=== PATIENT | female | born 1995 | race American Indian/Alaskan Native ===

== ENCOUNTER 2019-01-12 12:07 | Emergency (ER) | payer SELFPAY ==
[2019-01-12 12:11] VITALS: BP 132/75
== END 2019-01-12 12:30 | disposition left against medical advice (07) ==
LOC: ED 12:07
DX: L02.32 Furuncle of buttock (principal); Z53.21 Procedure and treatment not carried out due to patient leaving prior to being seen by health care provider

== ENCOUNTER 2021-04-24 13:24 | Emergency (ER) | payer OTHER ==
[2021-04-24 16:34] VITALS: BP 130/78
--- NOTE | 2021-04-24 17:03 | Emergency Department Report ---
- General Chief complaint: Skin/Abscess/Foreign Body Stated complaint: BOIL BETWEEN BUTT Time Seen by Provider: 04/24/21 16:55 Source: patient Mode of arrival: Ambulatory Limitations: No Limitations - History of Present Illness Initial comments: Patient is a 26-year-old female presents emergency room with complaints of an abscess to the gluteus region that began a couple days ago. She states that it has been increasing in size and becoming more uncomfortable. She states that she has had this in the past but it has been a while. She denies any drainage, fever, chills, nausea, vomiting, diarrhea. No past medical history. No allergies to medications. - Related Data Previous Rx's Medication Instructions Recorded Last Taken Type Naproxen 375 mg PO BID PRN #14 tablet 04/24/21 Unknown Rx Sulfamethoxazole/Trimethoprim 1 each PO BID 7 Days #14 tablet 04/24/21 Unknown Rx [Bactrim DS TAB] Allergies Allergy/AdvReac Type Severity Reaction Status Date / Time No Known Allergies Allergy Unverified 01/12/19 12:09 Abscess Boil HPI - HPI Chief Complaint: Skin/Abscess/Foreign Body Stated Complaint: BOIL BETWEEN BUTT Time Seen by Provider: 04/24/21 16:55 Home Medications: Previous Rx's Medication Instructions Recorded Last Taken Type Naproxen 375 mg PO BID PRN #14 tablet 04/24/21 Unknown Rx Sulfamethoxazole/Trimethoprim 1 each PO BID 7 Days #14 tablet 04/24/21 Unknown Rx [Bactrim DS TAB] Allergies/Adverse Reactions: Allergies Allergy/AdvReac Type Severity Reaction Status Date / Time No Known Allergies Allergy Unverified 01/12/19 12:09 ED Review of Systems ROS: Stated complaint: BOIL BETWEEN BUTT Other details as noted in HPI Comment: All other systems reviewed and negative ED Past Medical Hx - Past Medical History Previous Medical History?: No - Surgical History Past Surgical History?: No - Social History Smoking Status: Current Every Day Smoker Substance Use Type: None - Medications Home Medications: Home Medications Medication Instructions Recorded Confirmed Last Taken Type Naproxen 375 mg PO BID PRN #14 tablet 04/24/21 Unknown Rx Sulfamethoxazole/Trimethoprim 1 each PO BID 7 Days #14 tablet 04/24/21 Unknown Rx [Bactrim DS TAB] ED Physical Exam - General Limitations: No Limitations General appearance: alert, in no apparent distress - Head Head exam: Present: atraumatic, normocephalic - Eye Eye exam: Present: normal appearance - ENT ENT exam: Present: mucous membranes moist - Respiratory Respiratory exam: Absent: respiratory distress, accessory muscle use - Neurological Exam Neurological exam: Present: alert, oriented X3 - Psychiatric Psychiatric exam: Present: normal affect, normal mood - Skin Skin exam: Present: warm, dry, other (3 cm area of induration to the left lower gluteus region, no perianal involvement, no perineum invovlement, no signficant surrounding cellulitis, no opening or drainage, small area of central fluctuance, chaperoned by MAHI matamoros) ED Course Vital Signs 04/24/21 16:29 Temperature 98 F Pulse Rate 70 Respiratory 16 Rate Blood Pressure 130/78 [Right] O2 Sat by Pulse 100 Oximetry - I & D Left Buttocks Type of Procedure: Simple Site: left gluteus Blade Size: 11 I & D Procedure: betadine prep, sterile drapes applied, sterile dressing applied Progress: Verbal consent obtained by patient Chaperoned by MAHI Matamoros Skin prepped with Betadine, sterile drapes applied, 1.5 cm incision made with 11 blade, small amount of purulent drainage, no significant bleeding, used blunt hemostats and there were no further loculations, irrigated with saline, packed with iodoform gauze, patient tolerated well, no complications, well controlled ED Medical Decision Making - Medical Decision Making Patient is a 26-year-old female presents emergency room with complaints of an abscess to the gluteus region that began a couple days ago. She states that it has been increasing in size and becoming more uncomfortable. She states that she has had this in the past but it has been a while. She denies any drainage, fever, chills, nausea, vomiting, diarrhea. No past medical history. No allergies to medications. Vitals are normal. On exam:3 cm area of induration to the left lower gluteus region, no perianal involvement, no perineum invovlement, no signficant surrounding cellulitis, no opening or drainage, small area of central fluctuance, chaperoned by MAHI matamorso. I&D performed per edvin lujan note with a manager [employer] without any complications. Given prescription for medications. Advised patient Please take medication as prescribed. Please keep area clean, dry, covered. Wash around area with soap and water pat dry. No hot tub, no pool, no soaking in water. Please return in 2 to 3 days for packing removal. Follow-up with your primary care doctor. Return to emergency room for any new or worsening symptoms. Critical care attestation.: If time is entered above; I have spent that time in minutes in the direct care of this critically ill patient, excluding procedure time. ED Disposition Clinical Impression: Gluteal abscess Disposition: - TO HOME OR SELFCARE Is pt being admited?: No Does the pt Need Aspirin: No Condition: Stable Instructions: Skin Abscess, Incision and Drainage, Care After Additional Instructions: Please take medication as prescribed. Please keep area clean, dry, covered. Wash around area with soap and water pat dry. No hot tub, no pool, no soaking in water. Please return in 2 to 3 days for packing removal. Follow-up with your primary care doctor. Return to emergency room for any new or worsening symptoms. Prescriptions: Sulfamethoxazole/Trimethoprim [Bactrim DS TAB] 1 each PO BID 7 Days #14 tablet Naproxen 375 mg PO BID PRN #14 tablet PRN Reason: pain Referrals: PRIMARY MD ESPERANZA [Primary Care Provider] - 2-3 Days PARUL KELLY MD [Staff Physician] - 2-3 Days [facility] [Provider Group] - 2-3 Days Time of Disposition: 17:03 Print Language: TOGOLESE
== END 2021-04-24 17:15 | disposition home or self-care (01) ==
LOC: ED 13:24
DX: L02.31 Cutaneous abscess of buttock (principal)
CPT/HCPCS: 99281